=== PATIENT | male | born 1990 | race African-American/Black ===

== ENCOUNTER 2021-05-21 18:35 | Emergency (ER) | payer OTHER, SELFPAY ==
--- NOTE | ~2021-05-21 | CT_ITS ---
EXAMINATION: CT abdomen pelvis w con DATE: 05/21/2021 19:48 INDICATION: Abdominal pain. Blood in stool. TECHNIQUE: Computed tomography (CT) of the abdomen and pelvis was performed with 100 cc Omnipaque 350 intravenous contrast. The dose-length product was 316.55 mGy-cm. Automated exposure control and iter ative reconstruction technique were employed. COMPARISON: None. FINDINGS: Lung bases are unremarkable. Heart size normal. No significant pleural or pericardial effus ion. There are surgical changes consistent with colectomy. There is abnormal thickening with mucosal enhancement of the rectum and residual colon to the anastom osis. There is a right lower quadrant ostomy. No obstruction. No significant vascular abnormality. No lymphadenopathy. The liver, spleen, pancreas, adrenal glands and kidneys are unremarkable. Gallbladder is present. No free air or free fluid. IMPRESSION: 1. Abnormal thickening with mucosal enhancement of the rectum and residual sigmoid colon which may be infectious or inflammatory. Reviewed, dictated and finalized at location A. [employer] IMPRESSION: 1. Abnormal thickening with mucosal enhancement of the rectum and residual sigm oid colon which may be infectious or inflammatory.
[2021-05-21 18:40] VITALS: BP 116/72; PULSE 69; RESP 18; TEMP 36.6; O2SAT 98
[2021-05-21 18:59] LABS: Basophils Percent Auto 0.6 % (0.2-1.2); Eosinophils Absolute Auto 0.1 K/mm3 (0-0.3); Eosinophils Percent Auto 1.3 % (0-4.4); Hematocrit 40.8 % (42.0-52.0); Hemoglobin 13.6 g/dL (14.0-18.0); Immature Granulocyte Absolute 0.02 K/mm3 (0.00-0.031); Immature Granulocyte Percent A 0.3 % (0-0.5); Lymphocytes Absolute Auto 1.35 K/mm3 (0.9-3.2); Lymphocytes Percent Auto 19.3 % (18.3-44.2); Mean Corpuscular HGB Conc 33.3 g/dl (32-36); Mean Corpuscular Hemoglobin 27.9 pg (26-34); Mean Corpuscular Volume 83.6 fl (80-100); Mean Platelet Volume 9.7 fl (7.4-10.4); Monocytes Absolute Auto 0.3 K/mm3 (0.1-0.6); Monocytes Percent Auto 4.9 % (2.6-8.5); Neutrophils Absolute Auto 5.1 K/mm3 (1.3-6.7); Neutrophils Percent Auto 73.6 % (45.5-73.1); Platelet Count Result 205 k/mm3 (150-375); Red Blood Count 4.88 M/mm3 (4.6-6.20); Red Cell Distribution Width 13.8 % (11.5-14.5)
[2021-05-21 19:09] LABS: Alanine Aminotransferase 18 U/L (4-50); Albumin Level 4.6 g/dL (3.5-5.1); Alkaline Phosphatase 57 U/L (38-126); Anion Gap 8 mmol/L (8-16); Aspartate Amino Transferase 30 U/L (17-59); Bilirubin,Total 0.7 mg/dL (0.2-1.3); Blood Urea Nitrogen 10 mg/dL (9-20); Calcium 9.1 mg/dL (8.4-10.2); Carbon Dioxide 24 mmol/L (22-30); Chloride 106 mmol/L (98-107); Estimated CRCL calculation 139 ml/min; Estimated Glomerular Filt Rate > 60; Glucose 144 mg/dL (65-110); Lipase 37 U/L (23-300); Sodium 138 mmol/L (137-145)
[2021-05-21 19:56] VITALS: BP 126/74; PULSE 76; RESP 18; O2SAT 96
[2021-05-21 20:25] LABS: Add Urine Microscopic? YES; Appearance Urine Clear (Clear); Bilirubin Urine Negative (Negative); Blood Urine Negative (Negative); Color Urine Straw (Yellow); Glucose Urine UA Negative (Negative); Ketones Urine Negative (Negative); Leukocyte Esterase Ur Trace LEU/UL (Negative); Mucus Urine Rare /lpf; Nitrate Urine Negative (Negative); Protein Urine Negative (Negative); Urobilinogen Urine Negative mg/dL (<2.0)
[2021-05-21 20:28] LABS: Specific Grav Ur > 1.060 (1.001-1.035)
[2021-05-21 20:54] VITALS: BP 100/63; PULSE 61; RESP 18; O2SAT 98
[2021-05-21] MEDS: predniSONE 20 MG TABLET 60 MG PO (20:54)
--- NOTE | 2021-05-21 20:57 | ED.GENADULT ---
HPI - General Adult General Chief complaint: Abdominal Pain Stated complaint: abd pain, abnormal ostomy drainage Time Seen by Provider: 05/21/21 19:00 History of Present Illness HPI narrative: Patient is a 30-year-old male who presents ER with blood in his stool. He is passing from his rectum and from his ostomy bag. Patient has history of ulcerative colitis that required colectomy. No fevers or chills or sweats. Noticed the blood yesterday. Had increased cramping and pain in his abdomen today. He sees GI at [facility]. No known sick contacts. Related Data Allergies Allergy/AdvReac Type Severity Reaction Status Date / Time No Known Allergies Allergy Verified 05/21/21 19:56 Review of Systems Review of Systems: All systems reviewed & are unremarkable except as noted in HPI and below Constitutional: Constitutional: Denies chills, Denies fever(s) and Denies weakness ENT: Denies nasal congestion and Denies sore throat Cardiovascular: Cardiovascular: Denies chest pain, Denies rapid heart rate and Denies radiating jaw, neck or arm pain Respiratory: Respiratory: Denies cough and Denies dyspnea Gastrointestinal: Gastrointestinal: Reports abdominal pain, Denies nausea and Denies vomiting Comments: Blood in stool Neurologic: Denies headache(s), Denies focal weakness and Denies numbness PMFSH Past Medical History Medical History (Updated 05/22/21 @ 01:55 by Kuldeep Connell MD) Ulcerative colitis Surgical History Surgical History (Updated 05/22/21 @ 01:55 by Kuldeep Connell MD) History of colectomy Exam Narrative: GENERAL: Well-appearing, well-nourished, and in no acute distress. HEAD: Normocephalic, atraumatic. ENT: Mucous membranes moist. CHEST: Clear to auscultation. No respiratory distress. HEART: Regular rate and rhythm. Normal peripheral pulses. ABDOMEN: Soft, nontender, nondistended. EXTREMITIES: Normal range of motion. No edema. SKIN: Warm, dry, no rash. NEURO: Alert and oriented x3. PSYCH: Normal mood and affect. Course Course Emergency Course: Patient resting comfortably. Informed results. Likely suffering from a flare from UC. Will place on prednisone taper which is typical for him to receive during flare. Recommend he follow-up with his GI physician in [facility]. Vital Signs Vital signs: Vital Signs Temperature 97.8 F 05/21/21 18:40 Pulse Rate 69 05/21/21 18:40 Respiratory Rate 18 05/21/21 18:40 Blood Pressure 116/72 05/21/21 18:40 Pulse Oximetry 98 05/21/21 18:40 Temperature 98 F 05/21/21 21:14 Pulse Rate 62 05/21/21 21:14 Respiratory Rate 16 05/21/21 21:14 Blood Pressure 111/70 05/21/21 21:14 Pulse Oximetry 99 05/21/21 21:14 Medical Decision Making Vital Signs Vital Signs: Vital Signs Temperature 97.8 F 05/21/21 18:40 Pulse Rate 69 05/21/21 18:40 Respiratory Rate 18 05/21/21 18:40 Blood Pressure 116/72 05/21/21 18:40 Pulse Oximetry 98 05/21/21 18:40 Temperature 98 F 05/21/21 21:14 Pulse Rate 62 05/21/21 21:14 Respiratory Rate 16 05/21/21 21:14 Blood Pressure 111/70 05/21/21 21:14 Pulse Oximetry 99 05/21/21 21:14 Lab Data Result diagrams: 05/21/21 18:49 05/21/21 18:49 Labs: Lab Results 05/21/21 05/21/21 05/21/21 Range/Units 18:49 18:49 20:05 WBC 7.0 (4.5-10.0) K/mm3 RBC 4.88 (4.6-6.20) M/mm3 Hgb 13.6 L (14.0-18.0) g/dL Hct 40.8 L (42.0-52.0) % MCV 83.6 (80-100) fl MCH 27.9 (26-34) pg MCHC 33.3 (32-36) g/dl RDW 13.8 (11.5-14.5) % Plt Count 205 (150-375) k/mm3 MPV 9.7 (7.4-10.4) fl Immature Gran % (Auto) 0.3 (0-0.5) % Neut % (Auto) 73.6 H (45.5-73.1) % Lymph % (Auto) 19.3 (18.3-44.2) % [place] % (Auto) 4.9 (2.6-8.5) % Eos % (Auto) 1.3 (0-4.4) % Baso % (Auto) 0.6 (0.2-1.2) % Lymph # (Auto) 1.35 (0.9-3.2) K/mm3 [place] # (Auto) 0.3 (0.1-0.6) K/mm3 E
[2021-05-21 21:14] VITALS: BP 111/70; PULSE 62; RESP 16; TEMP 36.6; O2SAT 99
== END 2021-05-21 21:14 | disposition home or self-care (01) ==
PROVIDERS: Emergency Medicine; Emergency Provider Emergency Medicine
DX: K51.90 Ulcerative colitis, unspecified, without complications (principal); Z93.3 Colostomy status; Z90.49 Acquired absence of other specified parts of digestive tract
CPT/HCPCS: 36415; 74177; 80053; 81001; 83690; 85025; 99284; J7512; Q9967